=== PATIENT | male | born 1975 | race Two or more races ===

== ENCOUNTER 2023-11-13 13:39 | Emergency (ER) | payer OTHER ==
[~2023-11-13] VITALS: Ht 172.7 cm; Wt 110.0 kg
[2023-11-13] MEDS: SODIUM CHLORIDE 0.9% 1,000 ML IV ONE ×3 (14:20→14:55)
[2023-11-13 14:34] LABS: Basophils # (auto) 0.1 10 ^3/uL (0-0.2); Basophils % (auto) 0.5 % (0.0-2.0); Eosinophils # (auto) 0.1 10 ^3/uL (0-0.8); Eosinophils % (auto) 0.6 % (0.0-7.0); Hematocrit 52.2 % (41.0-53.0); Hemoglobin 17.9 g/dL (13.5-17.5); Lymphocytes # (auto) 2.3 10 ^3/uL (0.4-5.4); Lymphocytes % (auto) 22.1 % (10.0-50.0); Mean Corpuscular Hemoglobin 28.3 pg (28.0-32.0); Mean Corpuscular Hgb Conc. 34.2 g/dL (32.0-36.0); Mean Corpuscular Volume 82.6 fL (80.0-100.0); Monocytes # (auto) 0.8 10 ^3/uL (0-1.3); Monocytes % (auto) 7.9 % (0.0-12.0); Neutrophils # (auto) 7.1 10 ^3/uL (1.6-8.6); Neutrophils % (auto) 68.9 % (37.0-80.0); Nucleated Red Blood Cells % 0.1 %; Platelet Count (auto) 325 10^3/uL (140-450); Red Blood Cells 6.32 10^6/uL (4.5-5.90); White Blood Cell 10.4 10^3/uL (4.4-10.8)
[2023-11-13 14:36] VITALS: PULSE 93; RESP 24; O2SAT 94
[2023-11-13 15:57] LABS: Chloride 105 mmol/L (98-107); Sodium 134 mmol/L (136-145)
[2023-11-13 15:59] LABS: Potassium 4.9 mmol/L (3.5-5.1)
[2023-11-13 16:00] LABS: Anion Gap 11 (5-15); Carbon Dioxide 18 mmol/L (20-30)
[2023-11-13 16:01] LABS: Calcium 9.4 mg/dL (8.7-10.4)
[2023-11-13 16:06] LABS: Alkaline Phosphatase 89 U/L (46-116); Glucose 360 mg/dL (74-106); Magnesium 1.8 mg/dL (1.6-2.6)
[2023-11-13 16:07] LABS: Aspartate Aminotransferase 14 U/L (13-40)
[2023-11-13 16:08] LABS: Total Protein 6.6 g/dL (5.7-8.2)
[2023-11-13 16:27] LABS: Alanine Aminotransferase 41 U/L (7-40); Albumin 3.9 g/dL (3.2-4.8); Blood Urea Nitrogen 34 mg/dL (9-23); Creatine Kinase IFCC 91 U/L (46-171)
[2023-11-13 17:11] LABS: Urine Bacteria None Seen /hpf (None Seen)
[2023-11-13 17:24] LABS: Urine Blood Negative /uL (Negative); Urine Clarity Clear (Clear); Urine Color Light-Yellow (Yellow); Urine Hyaline Cast MOD /lpf (0 - 2); Urine Mucus FEW (None Seen); Urine Protein, UAD 1+ (Negative); Urine Specific Gravity 1.016 (1.001-1.035); Urine Urobilinogen Normal (Negative); Urine WBC 3 /hpf (0 - 3); Urine pH 5.5 (5.0-9.0)
[2023-11-13 17:35] LABS: Amphetamine Screen, Urine Neg (NEGATIVE); Barbiturate Scree,Urine Neg (NEGATIVE); Benzodiazephine Screen, Urine Neg (NEGATIVE); Cannabinoid Screen, Urine Neg (NEGATIVE); Cocaine Screen, Urine Neg (NEGATIVE); Opiate Scree,Urine Neg (NEGATIVE); Phencyclidine Screen, Urine Neg (NEGATIVE)
[2023-11-13 19:30] VITALS: PULSE 110; RESP 16; O2SAT 94
[2023-11-13 20:46] LABS: Alanine Aminotransferase 44 U/L (7-40); Albumin 4.4 g/dL (3.2-4.8); Alkaline Phosphatase 92 U/L (46-116); Anion Gap 10 (5-15); Aspartate Aminotransferase 14 U/L (13-40); BUN/Creatinine Ratio 23.9 (10.0-20.0); Blood Urea Nitrogen 34 mg/dL (9-23); Calcium 9.9 mg/dL (8.7-10.4); Carbon Dioxide 18 mmol/L (20-30); Chloride 106 mmol/L (98-107); Glucose 277 mg/dL (74-106); Sodium 134 mmol/L (136-145); Total Protein 7.1 g/dL (5.7-8.2)
[2023-11-13 21:29] VITALS: BP 100/62; PULSE 90; RESP 15; TEMP 98.1; O2SAT 92
== END 2023-11-13 21:26 | disposition home or self-care (01) ==
LOC: ER 13:39
DX: T67.5XXA Heat exhaustion, unspecified, initial encounter (principal); E86.0 Dehydration; N28.9 Disorder of kidney and ureter, unspecified; I10 Essential (primary) hypertension; E11.9 Type 2 diabetes mellitus without complications; E78.5 Hyperlipidemia, unspecified; I25.2 Old myocardial infarction; Z98.890 Other specified postprocedural states; Z79.899 Other long term (current) drug therapy; X58.XXXA Exposure to other specified factors, initial encounter; Y93.89 Activity, other specified; Y92.89 Other specified places as the place of occurrence of the external cause; Y99.8 Other external cause status
CPT/HCPCS: 36415; 71045; 80053; 80307; 81001; 82550; 83735; 84484; 85025; 93005; 96360; 99285; J7030